=== PATIENT | female | born 1965 | race Caucasian/White ===

== ENCOUNTER 2019-09-07 10:17 | Emergency (ER) | payer MEDICARE, MEDICAID, SELFPAY ==
--- NOTE | ~2019-09-07 | CT_ITS ---
EXAMINATION: CT facial bones w con DATE: 09/07/2019 14:15 INDICATION: Right-sided facial swelling. TECHNIQUE: Computed tomography (CT) of the facial bones and maxillofacial region was performed with 7 5 mL Omnipaque-350 intravenous contrast. Coronal reconstructions were obtained. Automated exposure co ntrol and iterative reconstruction technique were employed. The dose-length product was 521.72 mGy-cm . COMPARISON: None. FINDINGS: Asymmetric swelling and hyperemia of the right parotid gland with mild stranding in the surrounding f at but without evident abscess or discrete mass consistent with parotiditis. Asymmetric enlargement o f still normal-sized, likely reactive right submandibular and level 2A upper anterior jugular chain l ymph nodes. Orbits are normal. Paranasal sinuses are clear. Dental disease with multiple large dental caries. There are several periapical erosions involving the right maxillary incisor and lateral inci sor as well as the right mandibular incisor, lateral incisor and first premolar. Moderate cervical sp ondylosis. Bones are otherwise unremarkable. Mastoid air cells and middle ear cavities are clear. Vis ualized portions of the brain are unremarkable. IMPRESSION: 1. Asymmetrically enlarged, hyperemic right parotid with surrounding inflammatory stranding consisten t with uncomplicated parotiditis. No abscess. 2. Extensive dental disease with multiple large dental caries and several periapical erosions. Consid er dental referral. Reviewed, dictated and finalized at location [facility]. IMPRESSION: 1. Asymmetrically enlarged, hyperemic right parotid with surrounding inflammato ry stranding consistent with uncomplicated parotiditis. No abscess. 2. Extensive dental disease with multiple large dental caries and several peria pical erosions. Consider dental referral.
[2019-09-07 11:09] VITALS: BP 118/89; PULSE 73; RESP 20; TEMP 37; O2SAT 100
[2019-09-07 11:19] LABS: Basophils Absolute Auto 0.1 K/mm3 (0.0-0.1); Basophils Percent Auto 0.7 % (0.2-1.2); Eosinophils Absolute Auto 0.2 K/mm3 (0-0.3); Eosinophils Percent Auto 2.4 % (0-4.4); Hematocrit 40.7 % (37.0-47.0); Hemoglobin 13.2 g/dL (12.0-15.0); Immature Granulocyte Absolute 0.05 K/mm3 (0.00-0.031); Immature Granulocyte Percent A 0.6 % (0-0.5); Lymphocytes Absolute Auto 1.27 K/mm3 (0.9-3.2); Lymphocytes Percent Auto 14.4 % (18.3-44.2); Mean Corpuscular HGB Conc 32.4 g/dl (32-36); Mean Corpuscular Hemoglobin 28.4 pg (26-34); Mean Corpuscular Volume 87.7 fl (80-100); Monocytes Absolute Auto 0.6 K/mm3 (0.1-0.6); Monocytes Percent Auto 6.5 % (2.6-8.5); Neutrophils Absolute Auto 6.7 K/mm3 (1.3-6.7); Neutrophils Percent Auto 75.4 % (45.5-73.1); Platelet Count Result 402 k/mm3 (150-375); Red Blood Count 4.64 M/mm3 (4.2-5.4); Red Cell Distribution Width 16.4 % (11.5-14.5); White Blood Count 8.8 K/mm3 (4.5-10.0)
[2019-09-07 11:32] LABS: Alanine Aminotransferase 14 U/L (4-35); Albumin Level 4.3 g/dL (3.5-5.1); Alkaline Phosphatase 64 U/L (38-126); Aspartate Amino Transferase 18 U/L (14-36); Bilirubin,Total 0.3 mg/dL (0.2-1.3); Blood Urea Nitrogen 14 mg/dL (7-17); Calcium 9.2 mg/dL (8.4-10.2); Carbon Dioxide 23 mmol/L (22-30); Chloride 105 mmol/L (98-107); Estimated CRCL calculation 87 ml/min; Estimated Glomerular Filt Rate > 60; Glucose 162 mg/dL (65-105); Potassium 3.8 mmol/L (3.4-5.0); Sodium 141 mmol/L (137-145)
--- NOTE | 2019-09-07 12:47 | ED.GENADULT ---
HPI - General Adult General Chief complaint: Unspecified <ANGELI Edmondson Last Filed: 09/07/19 16:22> Stated complaint: rt sided swelling/ear pain <ANGELI Edmondson Last Filed: 09/07/19 16:22> Time Seen by Provider: 09/07/19 12:22 <ANGELI Edmondson Last Filed: 09/07/19 16:22> Source: patient <ANGELI Edmondson Last Filed: 09/07/19 16:22> Mode of arrival: ambulatory <ANGELI Edmondson Last Filed: 09/07/19 16:22> Limitations: no limitations <ANGELI Edmondson Last Filed: 09/07/19 16:22> History of Present Illness HPI narrative: This is a 54 year old female that presents to the ER for right-sided facial swelling that worsened this morning. Reports she was seen by her primary care doctor for this and diagnosed with an ear infection 1 week ago. Reports she took Augmentin with relief initially. Reports again this morning she noted returning of right-sided facial swelling. Denies fever, dentalgia, or sore throat. <ANGELI Edmondson Last Filed: 09/07/19 16:22> Related Data Home medications: Home Medications Medication Instructions Recorded Confirmed allopurinol DAILY 09/07/19 amoxicillin-pot clavulanate tablet BID 09/07/19 buspirone mg BID 09/07/19 clonidine HCl TID 09/07/19 cyclobenzaprine mg TID 09/07/19 diltiazem HCl TID 09/07/19 ergocalciferol (vitamin D2) WEEKLY 09/07/19 ezetimibe mg DAILY 09/07/19 fenofibrate nanocrystallized mg PO DAILY 09/07/19 hydralazine TID 09/07/19 hydrocodone-acetaminophen 09/07/19 irbesartan mg HS 09/07/19 magnesium oxide DAILY 09/07/19 metoprolol tartrate BID 09/07/19 morphine 09/07/19 pregabalin [Lyrica] TID 09/07/19 <ANGELI Edmondson Last Filed: 09/07/19 16:22> Allergies/adverse reactions: Allergies Allergy/AdvReac Type Severity Reaction Status Date / Time levofloxacin Allergy Unknown Hives Verified 09/07/19 12:38 Penicillins AdvReac Unknown nausea Unverified 09/07/19 12:38 <Ca Iyer PA-C - Last Filed: 09/07/19 16:22> Review of Systems Review of Systems: Narrative: CONSTITUTIONAL: Denies fever ENT: Denies sore throat or dentalgia <Ca Iyer PA-C - Last Filed: 09/07/19 16:22> All systems reviewed & are unremarkable except as noted in HPI and below <Ca Iyer PA-C - Last Filed: 09/07/19 16:22> PMFSH Past Medical History Medical History: Medical History (Updated 09/07/19 @ 16:21 by Ca Iyer PA-C) History of fibromyalgia History of gout History of hyperlipidemia History of hypertension <Ca Iyer PA-C - Last Filed: 09/07/19 16:22> Surgical History Surgical History: Surgical History (Updated 09/07/19 @ 12:51 by Ca Iyer PA-C) History of hysterectomy History of lumbosacral spine surgery <Ca Iyer PA-C - Last Filed: 09/07/19 16:22> Exam Narrative: Exam Narrative: GENERAL: Well-appearing, well-nourished, and in no acute distress. HEAD: Normocephalic, atraumatic. EYES: EOMI. ENT: Nares clear, no rhinorrhea or epistaxis. Mucous membranes moist. Oropharynx without tonsillar hypertrophy exudate or other lesions. Bilateral TMs pearly sood non-bulging. Poor dentition. Moderate right-sided facial swelling about the mandible. No trismus NECK: Supple. CHEST: Clear to auscultation. No respiratory distress. No wheezes rales or rhonchi HEART: Regular rate and rhythm. No murmur heard. Normal peripheral pulses. EXTREMITIES: Normal range of motion. No edema. SKIN: Warm, dry, no rash. NEURO: No focal deficits. Alert and oriented x3. PSYCH: Normal mood and affect <Ca Iyer PA-C - Last Filed: 09/07/19 16:22> Course Vital Signs Vital signs: Vital Signs Temperature 98.6 F 09/07/19 11:09 Pulse Rate 73 09/07/19 11:09 Respiratory Rate 20 09/07/19 11:09 Blood Pressure 118/89 09/07/19 11:09 Pulse Oximetry 100 09/07/19 11:09 Temperature 98.6 F 09/07/19 11
[2019-09-07 13:20] LABS: CRP 1.4 mg/dL (<1.0)
[2019-09-07 13:34] LABS: Erythrocyte Sedimentation Rate 16 mm/hr (0-20)
[2019-09-07 14:50] VITALS: BP 133/99; PULSE 74; RESP 16; O2SAT 96
--- NOTE | 2019-09-07 15:09 | PC.NURSE ---
report and care to GARY Beck
--- NOTE | 2019-09-07 15:50 | PC.NURSE ---
Patient given water per verbal okay from Jaylon REICH.
[2019-09-07 16:30] VITALS: BP 127/80; PULSE 67; RESP 18; O2SAT 98
== END 2019-09-07 16:31 | disposition home or self-care (01) ==
PROVIDERS: Physician Assistant; Emergency Provider General Practice
DX: K11.20 Sialoadenitis, unspecified (principal); M79.7 Fibromyalgia; M10.9 Gout, unspecified; E78.5 Hyperlipidemia, unspecified; I10 Essential (primary) hypertension
CPT/HCPCS: 36415; 70487; 80053; 85025; 85652; 86140; 99284; Q9967

== ENCOUNTER 2022-02-10 12:18 | Outpatient (CLI) | payer MEDICARE, MEDICAID, SELFPAY ==
[2022-02-10 12:50] LABS: Basophils Absolute Auto 0.1 K/mm3 (0.0-0.1); Basophils Percent Auto 0.9 % (0.2-1.2); Eosinophils Absolute Auto 0.3 K/mm3 (0-0.3); Eosinophils Percent Auto 2.8 % (0-4.4); Hematocrit 41.4 % (37.0-47.0); Hemoglobin 13.6 g/dL (12.0-15.0); Immature Granulocyte Absolute 0.09 K/mm3 (0.00-0.031); Lymphocytes Absolute Auto 1.43 K/mm3 (0.9-3.2); Lymphocytes Percent Auto 16.1 % (18.3-44.2); Mean Corpuscular HGB Conc 32.9 g/dl (32-36); Mean Corpuscular Volume 91.4 fl (80-100); Monocytes Absolute Auto 0.7 K/mm3 (0.1-0.6); Monocytes Percent Auto 7.8 % (2.6-8.5); Neutrophils Absolute Auto 6.4 K/mm3 (1.3-6.7); Neutrophils Percent Auto 71.4 % (45.5-73.1); Platelet Count Result 326 k/mm3 (150-375); Red Blood Count 4.53 M/mm3 (4.2-5.4); Red Cell Distribution Width 16.1 % (11.5-14.5); White Blood Count 8.9 K/mm3 (4.5-10.0)
[2022-02-10 13:16] LABS: CRP 0.6 mg/dL (<1.0)
[2022-02-10 13:21] LABS: Iron 96 ug/dL (37-170)
[2022-02-10 13:31] LABS: Percent Iron Saturation 20 % (20-50)
[2022-02-10 15:53] LABS: Erythrocyte Sedimentation Rate 11 mm/hr (0-20)
[2022-02-16 15:48] LABS: CALR Exon 9 Mutation Not Detected (Not Detected); CSF3R Exon 14/17 Mutation Not Detected (Not Detected); Clinical Indication Not Given; JAK2 Exon 12 Mutation Not Detected (Not Detected); JAK2 V617F Mutation Not Detected (Not Detected); MPL Exon 10 Mutation Not Detected (Not Detected); Specimen Source Blood
== END 2022-02-10 12:19 | disposition home or self-care (01) ==
PROVIDERS: PCP Nurse Practitioner Family; Visit Provider Internal Medicine Hematology & Oncology
DX: D75.838 Other thrombocytosis (principal)
CPT/HCPCS: 36415; 81219; 81270; 81402; 81403; 81479; 82728; 83540; 83550; 85025; 85652; 86140

== ENCOUNTER 2022-09-03 04:18 | Day surgery (SDC) | payer MEDICARE, MEDICAID, SELFPAY ==
[2022-08-30 09:23] VITALS: BMI 36.9
[2022-09-03 11:53] VITALS: BP 144/97; PULSE 78; RESP 18; TEMP 36.5; O2SAT 94
--- NOTE | 2022-09-03 11:56 | WPDANESEPPF ---
Anes - Initial Pre Proc Eval Procedure: Operation Date: 09/03/22 13:00 Proposed Procedures p Colonoscopy - Chris Fuller MD Date/Time: 09/03/22 11:56 Surgeon: Chris Fuller MD Pre Op Diagnosis: other fecal abnormalities Patient Data Age: 57 Gender: F Height: 1.7 m Weight: 105.1 kg Last Vital Signs Temp 36.5 C 09/03/22 11:53 Pulse 78 09/03/22 11:53 Resp 18 09/03/22 11:53 BP 144/97 H 09/03/22 11:53 Pulse Ox 94 09/03/22 11:53 O2 Del Method Room Air 09/03/22 11:53 Allergies Allergy/AdvReac Type Severity Reaction Status Date / Time levofloxacin Allergy Unknown Hives Verified 09/03/22 11:50 Penicillins AdvReac Unknown nausea Verified 09/03/22 11:50 Home Medications Medication Instructions Recorded Confirmed Type allopurinol 300 mg tablet 300 mg PO DAILY 09/07/19 08/30/22 History buspirone 10 mg tablet 10 mg PO BID 09/07/19 08/30/22 History clonidine HCl 0.3 mg tablet 0.3 mg PO TID 09/07/19 08/30/22 History cyclobenzaprine 10 mg tablet 10 mg PO TID 09/07/19 08/30/22 History diltiazem HCl 90 mg tablet 90 mg PO TID 09/07/19 08/30/22 History ergocalciferol (vitamin D2) 1,250 1,250 mcg PO WEEKLY 09/07/19 09/03/22 History mcg (50,000 unit) capsule ezetimibe 10 mg tablet 10 mg PO DAILY 09/07/19 08/30/22 History fenofibrate nanocrystallized 145 145 mg PO DAILY 09/07/19 08/30/22 History mg tablet hydralazine 50 mg tablet 50 mg PO TID 09/07/19 08/30/22 History hydrocodone 7.5 mg-acetaminophen 7.5 tablet PO PRN pain 09/07/19 08/30/22 History 325 mg tablet irbesartan 150 mg tablet 150 mg PO HS 09/07/19 08/30/22 History magnesium oxide 400 mg (241.3 mg 400 mg PO DAILY 09/07/19 08/30/22 History magnesium) tablet metoprolol tartrate 100 mg tablet 100 mg PO BID 09/07/19 08/30/22 History morphine 15 mg immediate release 15 mg PO PRN pain 09/07/19 08/30/22 History tablet azelastine 137 mcg (0.1 %) nasal 1 spray intranasal .qd-bid #30 mL 02/10/22 08/30/22 Rx spray aerosol Patient hx anesthesia problems: none Family hx anesthesia problems: none Results Review: All pre-operative results and documents have been reviewed as part of the pre-operative evaluation. [facility] Past Medical History Medical History History of fibromyalgia History of gout History of hyperlipidemia History of hypertension Surgical History Surgical History History of hysterectomy History of lumbosacral spine surgery Social History Social History (Updated 02/10/22 @ 11:30 by NINA Meade) Smoking status: Former smoker Tobacco type: cigarettes Alcohol intake: never Substance use: never Substance use type: does not use Lack of Transportation: No Lack of Food: Never True Current Housing: I Have Housing Concerned About Future Housing: No Difficulty Paying Gas/Electric Bills: No Difficulty Paying for Meds: No Currently Unemployed: No Education: Associate Degree Difficulty w/ Childcare or Family Care: No Living arrangements: alone Occupation/Education: occupation Gender identity (if verbalized by the patient): Female Spiritual care concerns: No Anes - Eval Final PreProcedure Day of Procedure 09/03/22 11:56 Patient weight: obese Heart: regular rate and rhythm Lungs: clear to auscultation and normal air movement Airway: Mallampati scale class II Neurological: alert and oriented Last oral intake: >/= 8 hours ASA classification: III Emergent: no Anesthetic plan: proceed Anesthesia type and monitoring: general GIVS Results Review: All pre-operative results and documents have been reviewed as part of the pre-operative evaluation. Informed Consent: The patient's anesthetic plan and its attendant risks and benefits were discussed with the patient/family/POA. Questions were solicited and answers provided to the satisfact
--- NOTE | 2022-09-03 13:07 | PM.HPGS ---
History of Present Illness History of Present Illness Consent: Risks, benefits, and alternatives have been discussed and questions answered. Patient agrees to proceed with procedure. Chief complaint: other fecal abnormalities Narrative: Florence Sanchez is a 57 year old female here for first colonoscopy, had positive cologuard Review of Systems Constitutional: Constitutional: Denies headache(s) and Denies weakness Eyes: Eyes: Denies blurry vision ENT: Reports Normal hearing present, Denies headache(s) and Denies neck pain Cardiovascular: Cardiovascular: Denies chest pain and Denies dyspnea Respiratory: Respiratory: Denies dyspnea Gastrointestinal: Gastrointestinal: Reports no additional gastrointestinal complaints Genitourinary: Genitourinary: Denies dysuria Musculoskeletal: Musculoskeletal: Denies neck pain Integumentary/Breasts: Skin/Breast: Denies dry skin Neurologic: Reports Normal hearing present, Denies headache(s) and Denies weakness Psychiatric: Psychiatric: Denies anxiety Endocrine: Endocrine: Denies change in body appearance Hematologic/Lymphatic: Hematologic/Lymphatic: Denies easy bleeding Allergic/Immunologic: Allergic/Immunologic: Denies urticaria PMFSH Past Medical History Medical History (Updated 09/03/22 @ 13:07 by Chris Fuller MD) History of fibromyalgia History of gout History of hyperlipidemia History of hypertension Positive colorectal cancer screening using Cologuard test Surgical History Surgical History History of hysterectomy History of lumbosacral spine surgery Social History Social History (Updated 02/10/22 @ 11:30 by NINA Meade) Smoking status: Former smoker Tobacco type: cigarettes Alcohol intake: never Substance use: never Substance use type: does not use Lack of Transportation: No Lack of Food: Never True Current Housing: I Have Housing Concerned About Future Housing: No Difficulty Paying Gas/Electric Bills: No Difficulty Paying for Meds: No Currently Unemployed: No Education: Associate Degree Difficulty w/ Childcare or Family Care: No Living arrangements: alone Occupation/Education: occupation Gender identity (if verbalized by the patient): Female Spiritual care concerns: No Meds Home Medications and Allergies Home Medications Medication Instructions Recorded Confirmed Type allopurinol 300 mg tablet 300 mg PO DAILY 09/07/19 08/30/22 History buspirone 10 mg tablet 10 mg PO BID 09/07/19 08/30/22 History clonidine HCl 0.3 mg tablet 0.3 mg PO TID 09/07/19 08/30/22 History cyclobenzaprine 10 mg tablet 10 mg PO TID 09/07/19 08/30/22 History diltiazem HCl 90 mg tablet 90 mg PO TID 09/07/19 08/30/22 History ergocalciferol (vitamin D2) 1,250 1,250 mcg PO WEEKLY 09/07/19 09/03/22 History mcg (50,000 unit) capsule ezetimibe 10 mg tablet 10 mg PO DAILY 09/07/19 08/30/22 History fenofibrate nanocrystallized 145 145 mg PO DAILY 09/07/19 08/30/22 History mg tablet hydralazine 50 mg tablet 50 mg PO TID 09/07/19 08/30/22 History hydrocodone 7.5 mg-acetaminophen 7.5 tablet PO PRN pain 09/07/19 08/30/22 History 325 mg tablet irbesartan 150 mg tablet 150 mg PO HS 09/07/19 08/30/22 History magnesium oxide 400 mg (241.3 mg 400 mg PO DAILY 09/07/19 08/30/22 History magnesium) tablet metoprolol tartrate 100 mg tablet 100 mg PO BID 09/07/19 08/30/22 History morphine 15 mg immediate release 15 mg PO PRN pain 09/07/19 08/30/22 History tablet azelastine 137 mcg (0.1 %) nasal 1 spray intranasal .qd-bid #30 mL 02/10/22 08/30/22 Rx spray aerosol Allergies Allergy/AdvReac Type Severity Reaction Status Date / Time levofloxacin Allergy Unknown Hives Verified 09/03/22 11:50 Penicillins AdvReac Unknown nausea Verified 09/03/22 11:50 Vital Signs Vital Signs - 24 hr 09/03/22 11:53 Temperature 97.7 F Pulse Rate 78 Respiratory Rate 18 Blo
[2022-09-03] MEDS: LACTATED RINGERS 1,000 ML 150 ML IV CONT (13:38)
[2022-09-03 13:40] VITALS: BP 108/84; PULSE 80; RESP 20; O2SAT 98
[2022-09-03 13:50] VITALS: BP 122/84; PULSE 75; RESP 24; O2SAT 98
[2022-09-03 14:00] VITALS: BP 107/64; PULSE 68; RESP 24; O2SAT 97
== END 2022-09-03 14:19 | disposition home or self-care (01) ==
PROVIDERS: PCP Nurse Practitioner Family; Visit Provider Internal Medicine Gastroenterology
PROC: 0DJD8ZZ Inspection of Lower Intestinal Tract, Via Natural or Artificial Opening Endoscopic (ICD-10-PCS; CPT 45378; principal; 2022-09-03 13:00)
DX: R19.5 Other fecal abnormalities (principal); D12.3 Benign neoplasm of transverse colon; K64.8 Other hemorrhoids; Z87.891 Personal history of nicotine dependence; E66.9 Obesity, unspecified; Z68.36 Body mass index [BMI] 36.0-36.9, adult
CPT/HCPCS: 45385; 88305; J2704; J7120